=== PATIENT | female | born 1960 | race Caucasian/White ===

== ENCOUNTER 2021-03-07 09:47 | Outpatient (REF) | payer MEDICAID, SELFPAY | END 2021-03-07 09:48 | disposition home or self-care (01) | LOC: HO.XRAY 09:47 | PROVIDERS: PCP Internal Medicine Nephrology; Visit Provider Internal Medicine Nephrology | DX: Z13.89 Encounter for screening for other disorder (principal) ==

== ENCOUNTER 2021-09-05 12:46 | Outpatient (REF) | payer MEDICAID, SELFPAY ==
--- NOTE | ~2021-09-05 | MR_ITS ---
EXAMINATION: MRI BRAIN WITHOUT CONTRAST CLINICAL INFORMATION: 60-year-old with problems with cognitive function/awareness. Patient's questionnaire indicates forgetfulness and headaches. History of essential hypertension. COMPARISON: None TECHNIQUE: Multiplanar multisequence MR imaging of the brain was done without IV contrast. Technical note: Images are degraded by motion artifact throughout the exam. Somewhat limited study. FINDINGS: BRAIN VOLUME: There is moderate generalized diffuse brain parenchymal volume loss with a nonspecific pattern. Bilateral hippocampal volume loss is also associated with this. STRUCTURAL: No malformations. BRAIN AND MENINGES: There are scattered patchy and punctate foci of FLAIR/T2 signal hyperintensity within the subcortical and deeper white matter of both cerebral hemispheres which are nonspecific but likely reflect zones of chronic ischemic microangiopathy. DWI sequence demonstrates no restricted diffusion. Specifically, there is no evidence for acute or subacute cerebral ischemia. Gradient refocused images demonstrate no definite pathologic susceptibility artifact to suggest hemorrhage, hemosiderin staining or abnormal mineral deposition. No extra-axial fluid collections, significant space-occupying process or mass effect are identified. VENTRICLES AND SUBARACHNOID SPACES: The ventricular system and subarachnoid spaces are consistent with generalized volume loss. No hydrocephalus. ORBITAL STRUCTURES: The visualized orbital structures are grossly unremarkable within the limitations of the study. VASCULAR: Signal voids are noted in the visualized major intracranial vessels. SINUSES AND OSSEOUS STRUCTURES: Bilateral mastoid effusions are noted, right more than left, which is nonspecific. There is a small fluid level in the right maxillary sinus. There is nasal septal deviation to the left. Osseous marrow signal intensity is grossly unremarkable. MR/MR head/brain wo con IMPRESSION: 1. Some limitations related to excessive motion artifact. 2. Findings consistent with chronic ischemic microangiopathy in the white matter of both cerebral hemispheres associated with moderate generalized diffuse brain parenchymal volume loss. On qualitative assessment, this appears somewhat out of proportion to the patient's age which can be more accurately assessed with quantitative brain volumetrics. 3. No acute intracranial process and no evidence for hydrocephalus. 4. Bilateral mastoid effusions, right more than left with some retained secretions in the right maxillary sinus. Follow-up as per clinical indications. Correlate for clinical otologic disease.
== END 2021-09-05 12:47 | disposition home or self-care (01) ==
LOC: HO.MRI 12:46
PROVIDERS: Visit Provider Internal Medicine
DX: R41.89 Other symptoms and signs involving cognitive functions and awareness (principal); I10 Essential (primary) hypertension
CPT/HCPCS: 70551

== ENCOUNTER 2022-04-04 11:30 | Outpatient (REF) | payer MEDICAID, SELFPAY ==
--- NOTE | ~2022-04-04 | MM_ITS ---
EXAMINATION: MM SCREENING DIGITAL BREAST TOMOSYNTHESIS, BILATERAL CLINICAL INFORMATION: Screening. Asymptomatic. The lifetime risk of breast cancer based on the Tyrer-Cuzick Model is 4.8%. COMPARISON: Mammography: 07/29/2019 and studies dating back to 11/13/2013. TECHNIQUE: Digital breast tomosynthesis is performed in both the craniocaudal and mediolateral oblique views along with computer-aided detection (CAD). Synthesized 2D images are generated from the tomosynthesis. Left breast exaggerated craniocaudal view also performed. FINDINGS: The breasts are heterogeneously dense, which may obscure small masses (ACR BI-RADS breast composition Category c). There were limitations to the study related to patient's mental status and inability to cooperate. A dual-lumen dialysis catheter is seen overlying the left breast. There are bilateral regions of axillary scoliosis which may be related to previous tunneling of the catheter is within the upper chest wall. No new abnormal dominant mass or suspicious grouping of microcalcifications identified. MM/MM tomosynthesis screening BI IMPRESSION: No significant changes from prior exam. ASSESSMENT: BI-RADS 2: Benign RECOMMENDATION: Routine annual mammography screening. This patient's information was entered into a reminder system with a target due date for their next mammogram.
== END 2022-04-04 11:31 | disposition home or self-care (01) ==
LOC: HO.MAMMO 11:30
PROVIDERS: PCP Internal Medicine; Visit Provider Internal Medicine
DX: Z12.31 Encounter for screening mammogram for malignant neoplasm of breast (principal)
CPT/HCPCS: 77063; 77067

== ENCOUNTER 2022-10-09 11:50 | Emergency (ER) | payer MEDICAID, SELFPAY ==
--- NOTE | 2022-10-09 | ECG_ITS ---
Test Reason : ALTERED MENTAL STATUS Blood Pressure : / mmHG Vent. Rate : 102 BPM Atrial Rate : 102 BPM P-R Int : 148 ms QRS Dur : 148 ms QT Int : 428 ms P-R-T Axes : 068 -34 141 degrees QTc Int : 557 ms Sinus tachycardia Left axis deviation Left bundle branch block Abnormal ECG No previous ECGs available Referred By: Kristie Ferrell Electronically Signed By:JEANNIE MAR MD
--- NOTE | ~2022-10-09 | CT_ITS ---
EXAMINATION: CT HEAD WITHOUT CONTRAST CLINICAL INFORMATION: Cognitive functions/awareness difficulty, forgetfulness and headaches sited on previous MR report. COMPARISON: 05/19/[address] TECHNIQUE: Contiguous axial imaging was performed from the skull base to vertex without intravenous administration of contrast. This CT examination was performed using dose optimization techniques as appropriate, variously including the following: *Automated exposure control *Adjustment of mA and/or kV according to patient size (this includes techniques or standardized protocols for targeted exams where dose is matched to indication/reason for exam; i.e. extremities or head) *Use of iterative reconstruction technique DLP: 524 mGy-cm FINDINGS: There is unchanged underlying atrophy. Stable mild periventricular white matter changes. No evolving infarct, mass lesion, mass effect, midline shift, hemorrhage or extra-axial fluid collections identified. Intraorbital structures are unremarkable. Mild leftward septal deviation with left-sided spur. Sinuses and mastoids are free of disease. Bony structures are intact. Soft tissues are unremarkable. CT/CT head/brain wo IV con IMPRESSION: No acute intracranial pathology or interval change.
--- NOTE | ~2022-10-09 | XR_ITS ---
EXAMINATION: XR CHEST CLINICAL INFORMATION: Mental status change. COMPARISON: 10/09/2022 portable chest. TECHNIQUE: Frontal view of the chest was obtained. FINDINGS: Support devices: Left-sided large-bore central venous catheter with tip terminating over the right atrium. The lungs are clear. The heart and mediastinal structures are unremarkable. Probable old healed posterolateral right rib fractures without interval change. The soft tissues show surgical clips overlying the left axilla. XR/XR chest 1V IMPRESSION: No acute cardiopulmonary process.
[2022-10-09 12:04] VITALS: BP 168/75; PULSE 101; O2SAT 96
--- NOTE | 2022-10-09 12:08 | ED_ITS ---
HPI - General Adult General Chief complaint: Altered Mental Status Stated complaint: FOUND WANDERING,PT DOES NOT KNOW PERSONAL INFO Time Seen by Provider: 10/09/22 12:05 Source: EMS Mode of arrival: EMS Limitations: altered mental status History of Present Illness HPI narrative: A 71-year-old female brought in by EMS after was found wandering in the street. Patient is unable to provide any information about herself In the ED patient appear confused and incoherent with examiner, a steady gait in the street while she was picked up by EMS. Related Data Home Medications Medication Instructions Recorded Confirmed atenolol 50 mg tablet 1 tab PO DAILY 02/10/22 02/10/22 atorvastatin 80 mg tablet 1 tab DAILY 02/10/22 02/10/22 calcitriol 0.25 mcg capsule 6 cap PO 3XW 02/10/22 02/10/22 carvedilol 3.125 mg tablet 1 tab PO BID 02/10/22 02/10/22 cinacalcet 60 mg tablet 2 tab PO DAILY 02/10/22 02/10/22 ergocalciferol (vitamin D2) 1,250 1 cap PO QWEEK 02/10/22 02/10/22 mcg (50,000 unit) capsule lisinopril 20 mg tablet 1 tab PO BID 02/10/22 02/10/22 losartan 100 mg tablet 1 tab DAILY 02/10/22 02/10/22 melatonin 5 mg tablet 1 tab PO BEDTIME 02/10/22 02/10/22 sevelamer carbonate 800 mg tablet 2 tab PO TID 02/10/22 02/10/22 Allergies Allergy/AdvReac Type Severity Reaction Status Date / Time No Known Allergies Allergy Unverified 10/09/22 12:05 Review of Systems Review of Systems: Yes Unobtainable due to mental status PMFSH Past Medical History Medical History (Updated 10/09/22 @ 15:27 by Kristie Ferrell MD) Depression ESRD (end stage renal disease) on dialysis GERD (gastroesophageal reflux disease) HTN (hypertension) Iron deficiency anemia Surgical History (Updated 02/10/22 @ 13:28 by Crystal Duran RN) H/O colonoscopy History of History of endometrial ablation History of esophagogastroduodenoscopy (EGD) Hx of appendectomy Status post creation of arteriovenous fistula Social History Social History Advance Directives: No Advance Directives Information Provided: No Patient : No Physical Exam ED Vital Signs: Vital Signs - 24 hr 10/09/22 14:19 Pulse Rate 90 Respiratory Rate 14 Blood Pressure 166/87 H Pulse Oximetry 100 Oxygen Delivery Method Room Air BMI result Body Mass Index 19.0 Vital signs have been reviewed as appeared to be correct. Blood pressure normal. Heart rate normal. Respiration rate normal. Temperature normal. Oxygen saturation normal. Appearance:No acute distress. Head: Normal external exam. Normocephalic. Atraumatic. No Lee signs noted. No raccoon eyes noted Eyes: PERRLA. EOMI. Conjunctiva and sclera normal. Eyelids normal. ENT: TM's Normal. Pharynx normal. Uvula midline. Moist mucous membranes. No trismus noted. No drooling noted. No muffled voice noted. Neck: Normal inspection. Neck supple. FROM. No adenopathy. Thyroid Normal. No meningeal signs. No neck mass noted. CVS: Normal heart rate and rhythm. Heart sound normal. No murmurs noted. Pulses normal throughout. Respiratory: No respiratory distress. Painless inspiration. Breath sounds rocio l. No wheezes/rales/rhonchi noted. Chest nontender. No accessory muscle usage noted or decreased air movement noted. Abdomen: Soft and nontender. Bowel sounds normal in all 4 quadrants. No distention noted. No organomegaly noted. No visible injury noted. Back: No CVA tenderness. Full range of motion noted. Skin: Skin warm and dry. Normal skin color. Normal skin turgor. No rashes/lesions/lacerations noted. Extremities: No lower extremity edema. Extremities exhibit normal range of motion. Extremities nontender. Neuro: Disoriented, regards examiner, follow. Cranial nerve exam: II-XII are grossly intact No motor deficit. No sensory deficit. Reflexes normal. Course Reevaluation(s) Reevaluation #1: Ex- of the patient is at the bedside, he drove the patient for her renal dialysis today the patient left the car and walked away, patient normally confused and incoherent, lives with her ex- who also take care of her was able to provide history, confirm that there is no change from patient's baseline. Patient was able to ambulate in the emergency department and was able to eat and drink. Patient declined chest pain however with elevation of troponin were repeat troponin at 16:30, elevated lactic acid likely secondary to chronic renal disease will repeat after oral hydration at 16:30. The case was signed out to . Time: 15:28 Medical Decision Making Differential Diagnosis Differential Diagnoses: The differential diagnosis associated with the presentation includes (Sepsis, metabolic encephalopathy, severe anemia, CVA, intracranial pathology.) Lab Data MDM Lab Attestation statement: I reviewed the patient's lab results. 10/09/22 13:09 10/09/22 13:09 Labs: Lab Results 10/09/22 10/09/22 10/09/22 Range/Units 12:10 13:09 13:09 WBC 11.8 H (4.8-10.8) X10*3/uL RBC 2.96 L (4.20-5.50) X10*6/uL Hgb 9.0 L (12.0-16.0) g/dl Hct 27.6 L (37.0-47.0) % MCV 93.2 (80.0-98.0) fL MCH 30.4 (27.0-33.0) pg MCHC 32.6 (31.0-35.0) g/dl RDW 15.9 (11.0-16.0) % Plt Count 220 (160-400) X10*3/uL MPV 12.3 (9.4-12.3) fL Immature Gran % (Auto) 0.5 H (0.0-0.4) % Neut % (Auto) 87.3 H (45-73) % Lymph % (Auto) 5.3 L (20-40) % Pettis % (Auto) 6.5 (2-11) % Eos % (Auto) 0.1 (0-4) % Baso % (Auto) 0.3 (0-2) % Lymph # (Auto) 0.6 L (1.2-4.9) X10*3/uL Pettis # (Auto) 0.8 (0.1-1.2) X10*3/uL Eos # (Auto) 0.0 (0.0-0.4) X10*3/uL Baso # (Auto) 0.0 (0.0-0.2) X10*3/uL Abs Immat Gran (auto) 0.06 H (0.00-0.03) X10*3/uL Absolute Neuts (auto) 10.3 H (2.0-8.3) x10*3/uL Absolute Nucleated RBC 0.020 H (0.0-0.012) X10*3/uL Nucleated RBC % (auto) 0.2 (0.0-0.2) /100WBC Sodium (135-145) mmol/L Potassium (3.3-5.1) mmol/L Chloride (96-108) mmol/L Carbon Dioxide (22-29) mmol/L Anion Gap (12-20) BUN (9-16) mg/dL Creatinine (0.5-1.4) mg/dL Estim Creat Clear Calc Estimated GFR POC Glucose 115 (60-115) mg/dL Random Glucose (60-115) mg/dL Lactic Acid (0.5-2.0) mmol/L Calcium (8.4-10.2) mg/dL Total Bilirubin (0.0-1.0) mg/dL Direct Bilirubin (0.0-0.5) mg/dL AST (5-31) U/L ALT (0-31) U/L Alkaline Phosphatase (39-117) U/L Troponin I High Sens (<3.5-17.0) ng/L B-Natriuretic Peptide 2885 H (<100) pg/mL Total Protein (6.5-8.0) g/dL Albumin (3.5-5.0) g/dL Lipase (8-78) U/L Ethyl Alcohol mg/dL Influenza Type A (PCR) (Negative) Influenza Type B (PCR) (Negative) RSV RNA Qual (PCR) (Negative) SARS-CoV-2 RNA (RT-PCR) (Negative) 10/09/22 10/09/22 10/09/22 Range/Units 13:09 15:03 15:03 WBC (4.8-10.8) X10*3/uL RBC (4.20-5.50) X10*6/uL Hgb (12.0-16.0) g/dl Hct (37.0-47.0) % MCV (80.0-98.0) fL MCH (27.0-33.0) pg MCHC (31.0-35.0) g/dl RDW (11.0-16.0) % Plt Count (160-400) X10*3/uL MPV (9.4-12.3) fL Immature Gran % (Auto) (0.0-0.4) % Neut % (Auto) (45-73) % Lymph % (Auto) (20-40) % Pettis % (Auto) (2-11) % Eos % (Auto) (0-4) % Baso % (Auto) (0-2) % Lymph # (Auto) (1.2-4.9) X10*3/uL Pettis # (Auto) (0.1-1.2) X10*3/uL Eos # (Auto) (0.0-0.4) X10*3/uL Baso # (Auto) (0.0-0.2) X10*3/uL Abs Immat Gran (auto) (0.00-0.03) X10*3/uL Absolute Neuts (auto) (2.0-8.3) x10*3/uL Absolute Nucleated RBC (0.0-0.012) X10*3/uL Nucleated RBC % (auto) (0.0-0.2) /100WBC Sodium 138 (135-145) mmol/L Potassium 4.4 (3.3-5.1) mmol/L Chloride 97 (96-108) mmol/L Carbon Dioxide 29 (22-29) mmol/L Anion Gap 16 (12-20) BUN 51 H (9-16) mg/dL Creatinine 6.28 H* (0.5-1.4) mg/dL Estim Creat Clear Calc 6.9 Estimated GFR 7 POC Glucose (60-115) mg/dL Random Glucose 211 H (60-115) mg/dL Lactic Acid (0.5-2.0) mmol/L Calcium 9.5 (8.4-10.2) mg/dL Total Bilirubin 0.5 (0.0-1.0) mg/dL Direct Bilirubin < 0.2 (0.0-0.5) mg/dL AST 12 (5-31) U/L ALT 6 (0-31) U/L Alkaline Phosphatase 94 (39-117) U/L Troponin I High Sens 69.8 H* (<3.5-17.0) ng/L B-Natriuretic Peptide (<100) pg/mL Total Protein 6.0 L (6.5-8.0) g/dL Albumin 3.5 (3.5-5.0) g/dL Lipase 40 (8-78) U/L Ethyl Alcohol mg/dL Influenza Type A (PCR) NEGATIVE (Negative) Influenza Type B (PCR) NEGATIVE (Negative) RSV RNA Qual (PCR) NEGATIVE (Negative) SARS-CoV-2 RNA (RT-PCR) NEGATIVE (Negative) 10/09/22 10/09/22 Range/Units 15:03 15:03 WBC (4.8-10.8) X10*3/uL RBC (4.20-5.50) X10*6/uL Hgb (12.0-16.0) g/dl Hct (37.0-47.0) % MCV (80.0-98.0) fL MCH (27.0-33.0) pg MCHC (31.0-35.0) g/dl RDW (11.0-16.0) % Plt Count (160-400) X10*3/uL MPV (9.4-12.3) fL Immature Gran % (Auto) (0.0-0.4) % Neut % (Auto) (45-73) % Lymph % (Auto) (20-40) % Pettis % (Auto) (2-11) % Eos % (Auto) (0-4) % Baso % (Auto) (0-2) % Lymph # (Auto) (1.2-4.9) X10*3/uL Pettis # (Auto) (0.1-1.2) X10*3/uL Eos # (Auto) (0.0-0.4) X10*3/uL Baso # (Auto) (0.0-0.2) X10*3/uL Abs Immat Gran (auto) (0.00-0.03) X10*3/uL Absolute Neuts (auto) (2.0-8.3) x10*3/uL Absolute Nucleated RBC (0.0-0.012) X10*3/uL Nucleated RBC % (auto) (0.0-0.2) /100WBC Sodium (135-145) mmol/L Potassium (3.3-5.1) mmol/L Chloride (96-108) mmol/L Carbon Dioxide (22-29) mmol/L Anion Gap (12-20) BUN (9-16) mg/dL Creatinine (0.5-1.4) mg/dL Estim Creat Clear Calc Estimated GFR POC Glucose (60-115) mg/dL Random Glucose (60-115) mg/dL Lactic Acid 2.3 H* (0.5-2.0) mmol/L Calcium (8.4-10.2) mg/dL Total Bilirubin (0.0-1.0) mg/dL Direct Bilirubin (0.0-0.5) mg/dL AST (5-31) U/L ALT (0-31) U/L Alkaline Phosphatase (39-117) U/L Troponin I High Sens (<3.5-17.0) ng/L B-Natriuretic Peptide (<100) pg/mL Total Protein (6.5-8.0) g/dL Albumin (3.5-5.0) g/dL Lipase (8-78) U/L Ethyl Alcohol < 10 mg/dL Influenza Type A (PCR) (Negative) Influenza Type B (PCR) (Negative) RSV RNA Qual (PCR) (Negative) SARS-CoV-2 RNA (RT-PCR) (Negative) Independent Interpretation I performed an independent interpretation of an: Plain X-Ray (No acute intrat horacic pathology plan) and CT Scan (Head: No acute intracranial pathology plan) Radiology Impression Discussion of test interpretation with radiology: I have reviewed the radiologist's reading. Independent Historian Clinical information obtained from an independent historian. History obtained from or confirmed by: Other (Ex-) Chronic Conditions Patient?s care impacted by: Other (Dementia and end-stage renal disease.) Discharge Plan Discharge Clinical Impression: Dementia Patient Disposition: Still a Patient Instructions: Dementia (ED) Prescriptions: No Action atorvastatin 80 mg tablet 1 tab DAILY lisinopril 20 mg tablet 1 tab PO BID carvedilol 3.125 mg tablet 1 tab PO BID ergocalciferol (vitamin D2) 1,250 mcg (50,000 unit) capsule 1 cap PO QWEEK losartan 100 mg tablet 1 tab DAILY atenolol 50 mg tablet 1 tab PO DAILY calcitriol 0.25 mcg capsule 6 cap PO 3XW cinacalcet 60 mg tablet 2 tab PO DAILY sevelamer carbonate 800 mg tablet 2 tab PO TID melatonin 5 mg tablet 1 tab PO BEDTIME Referrals: Elissa Anderson MD [Primary Care Provider] -
[2022-10-09 12:14] LABS: Glucose, Whole Blood 115 mg/dL (60-115)
[2022-10-09 12:15] VITALS: BMI 19.0
--- NOTE | 2022-10-09 12:19 | PC.NURSE ---
Upon arrival to ED patient is alert and calm on stretcher. Patient asked what her name is and she just responds no. Patient able to answer some yes and no questions but otherwise unable to give staff any information. Dialysis catheter noted to left chest and patient is able to follow commands.
[2022-10-09 13:13] LABS: MANUAL DIFF FLAG NO
[2022-10-09 13:18] LABS: Basophils Percent Auto 0.3 % (0-2); Eosinophils Percent Auto 0.1 % (0-4); Hematocrit 27.6 % (37.0-47.0); Imm Gran Abs Auto 0.06 X10*3/uL (0.00-0.03); Imm Gran Pct Auto 0.5 % (0.0-0.4); Lymphocytes Absolute Auto 0.6 X10*3/uL (1.2-4.9); Lymphocytes Percent Auto 5.3 % (20-40); Mean Corpuscular HGB Conc 32.6 g/dl (31.0-35.0); Mean Corpuscular Hemoglobin 30.4 pg (27.0-33.0); Mean Corpuscular Volume 93.2 fL (80.0-98.0); Mean Platelet Volume 12.3 fL (9.4-12.3); Monocytes Absolute Auto 0.8 X10*3/uL (0.1-1.2); Monocytes Percent Auto 6.5 % (2-11); NRBC Pct Auto 0.2 /100WBC (0.0-0.2); Neutrophils Absolute Auto 10.3 x10*3/uL (2.0-8.3); Neutrophils Percent Auto 87.3 % (45-73); Platelet Count 220 X10*3/uL (160-400); Red Blood Count 2.96 X10*6/uL (4.20-5.50); Red Cell Distribution Width 15.9 % (11.0-16.0); White Blood Count 11.8 X10*3/uL (4.8-10.8)
[2022-10-09 13:51] LABS: B Type Natriuretic Peptide 2885 pg/mL (<100)
[2022-10-09 13:59] LABS: Influenza A PCR NEGATIVE (Negative); Influenza B PCR NEGATIVE (Negative); Resp Syncy Virus RNA Qual PCR NEGATIVE (Negative); SARS COV2 PCR INHOUSE NEGATIVE (Negative)
[2022-10-09 14:19] VITALS: BP 166/87; PULSE 90; RESP 14; O2SAT 100
[2022-10-09 15:46] LABS: Ethanol < 10 mg/dL
[2022-10-09 15:49] LABS: Alanine Aminotransferase 6 U/L (0-31); Albumin Level 3.5 g/dL (3.5-5.0); Alkaline Phosphatase 94 U/L (39-117); Anion Gap 16 (12-20); Aspartate Amino Transferase 12 U/L (5-31); Bilirubin Direct < 0.2 mg/dL (0.0-0.5); Bilirubin Total 0.5 mg/dL (0.0-1.0); Blood Urea Nitrogen 51 mg/dL (9-16); Calcium 9.5 mg/dL (8.4-10.2); Carbon Dioxide 29 mmol/L (22-29); Chloride 97 mmol/L (96-108); Creatinine Clr Calc Pharmacy 6.9; Estimated Glomerular Filt Rate 7; Glucose Random 211 mg/dL (60-115); Lipase 40 U/L (8-78); Potassium 4.4 mmol/L (3.3-5.1); Sodium 138 mmol/L (135-145)
[2022-10-09 15:50] LABS: Lactic Acid 2.3 mmol/L (0.5-2.0); Troponin-I High Sensitivity 69.8 ng/L (<3.5-17.0)
[2022-10-09 16:00] VITALS: BP 151/79; PULSE 100; RESP 14; TEMP 37.4; O2SAT 100
[2022-10-09 16:43] LABS: Lactic Acid 1.4 mmol/L (0.5-2.0)
[2022-10-09 17:01] LABS: Troponin-I High Sensitivity 79.7 ng/L (<3.5-17.0)
[2022-10-09 17:08] LABS: Reflex Lactate? Lactic Acid Added
--- NOTE | 2022-10-09 17:16 | MHC.EDTECH ---
Nurse said patient does not need a repeat lact as previous one is normal.
[2022-10-09 18:34] VITALS: BP 147/79; PULSE 104; RESP 12; TEMP 37; O2SAT 100
== END 2022-10-09 18:38 | disposition home or self-care (01) ==
PROVIDERS: Emergency Provider Emergency Medicine; PCP Internal Medicine
DX: F03.90 Unspecified dementia, unspecified severity, without behavioral disturbance, psychotic disturbance, mood disturbance, and anxiety (principal); R41.82 Altered mental status, unspecified; I12.0 Hypertensive chronic kidney disease with stage 5 chronic kidney disease or end stage renal disease; N18.6 End stage renal disease; D63.1 Anemia in chronic kidney disease; Z99.2 Dependence on renal dialysis; Z20.822 Contact with and (suspected) exposure to COVID-19; K21.9 Gastro-esophageal reflux disease without esophagitis
CPT/HCPCS: 0241U; 36415; 70450; 71045; 80048; 80076; 82077; 82947; 83605; 83690; 83880; 84484; 85025; 93005; 99284